=== PATIENT | female | born 2000 | race Asian ===

== ENCOUNTER 2024-06-11 20:37 | Emergency (ER) | payer BC, SELFPAY ==
--- NOTE | ~2024-06-11 | XR_ITS ---
Clinical Indication: Syncope PA and lateral views of the chest: Comparison: None Findings: The lungs are clear, without evidence of focal consolidation or pleural effusion. Cardiome diastinal silhouette is within normal limits. Bones and soft tissues are unremarkable. Impression: Normal chest. Reviewed, dictated and finalized at location . Impression: Normal chest.
--- NOTE | ~2024-06-11 | CT_ITS ---
Non-contrast Head CT History: Head injury, syncope Technique: Axial non-contrast imaging of the brain was performed. Dose reduction technique was used on this scan by utilizing automated exposure control and iterative reconstruction technique. The dose -length product (DLP) was 681.00 mGy-cm. Findings: There is no evidence of intracranial hemorrhage, mass lesion, or acute infarct. Brain par enchyma appears normal. The ventricles and subarachnoid spaces are normal in size. The calvarium ap pears normal. The visualized paranasal sinuses and mastoid air cells are clear. Impression: No significant abnormality seen. Reviewed, dictated and finalized at location . Impression: No significant abnormality seen.
[2024-06-11 20:49] VITALS: BP 107/83; PULSE 70; RESP 20; TEMP 36.8; O2SAT 100
[2024-06-11 23:58] VITALS: BP 117/79
[2024-06-11 23:59] VITALS: BP 117/77
[2024-06-12] VITALS: BP 120/74
--- NOTE | 2024-06-12 00:02 | PC.NURSE ---
Pt presents to ED due to syncope episode, around 4pm yesterday. Pt states she felt her vision go dark, and fell back hit her head. Pt denies N/V, no deformity or laceration noted. PT placed on cont. hospital monitor, and cont. pulse oximeter. IV inserted, and orthostatic BP done at bedside.
--- OUTSIDE RECORDS SUMMARY | 2024-06-12 00:24 | XMS_ITS | Clinical Summary ---
Author Organization [facility] Address [address] [place] [address] Phone Care Team Providers Care Front Office Administrator Name Role Phone Marnie Romo MD Primary Care Provider [phone] Allergies No known active allergies Medications No known medications Social History Tobacco Use Types Packs/Day Years Used Date Smoking Tobacco: Never Assessed Comments No Sex and Gender Information Value Date Recorded Sex Assigned at Not on file Legal Sex Female 6:49 PM CDT Gender Identity Not on file Sexual Orientation Not on file Last Filed Vital Signs Vital Sign Reading Time Taken Comments Blood Pressure 125/72 04/28/2016 6:58 PM CDT Pulse - - Temperature 36.8 C (98.2 F) 04/28/2016 6:58 PM CDT Respiratory Rate 18 04/28/2016 6:58 PM CDT Oxygen Saturation 97% 04/28/2016 6:58 PM CDT Inhaled Oxygen Concentration - - Weight 43 kg (94 lb 12.8 oz) 04/28/2016 6:58 PM CDT Height - - Body Mass Index - - Plan of Treatment Health Maintenance Due Date Last Done Comments CHLAMYDIA SCREENING (ANNUAL) 11-24 YEARS 2013 HPV VACCINES (1 - 3-dose series) 2017 DTAP/TDAP/TD VACCINES (1 - Tdap) 2021 HEPATITIS B VACCINES (1 of 3 - 19+ 3-dose series) 08/15 CERVICAL CANCER SCREENING 08/27/2023 HPV/Cotest (21-29) 08/27/2023 PAP SMEAR 08/27/2023 INFLUENZA VACCINE (#1) 2023 Insurance [facility] [employer] CHOICE [facility] [employer] CHOICE Care Teams Front Office Administrator Relationship Specialty [place] M[place] [address] [place] [address] [place] [phone] PCP - General Pediatrics 04/28/16
--- OUTSIDE RECORDS SUMMARY | 2024-06-12 00:24 | XMS_ITS | Clinical Summary ---
Author Organization [facility] Address [address] [place] [address] Care Team Providers Care Escrow Manager Name Role Phone Marnie Romo MD Primary Care Provider + Source Comments [facility],non-owned Affiliates and Associated Physician Practices is amultiple site organization consisting of ambulatory clinics and hospital sitesin [place], [place], [place] and [place]. This disclosure is being madepursuant to the Care Everywhere program and may not contain all information available regarding this patient. Last updated 17.[facility] Allergies No known active allergies Medications * Be aware that medications may not be up to date on this document. Alwaysverify current medications with the patient. 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 Gender Identity Not on file Sexual Orientation Not on file Last Filed Vital Signs Vital Sign Reading Time Taken Comments Blood Pressure 108/60 05/15/2017 2:25 PM CDT Pulse 81 05/15/2017 2:25 PM CDT Temperature 36.9 C (98.4 F) 05/15/2017 2:25 PM CDT Respiratory Rate 18 05/15/2017 2:25 PM CDT Oxygen Saturation 97% 05/15/2017 2:25 PM CDT Inhaled Oxygen Concentration - - Weight 46.3 kg (102 lb) 05/15/2017 2:25 PM CDT Height 156.2 cm (5' 1.5 ) 05/15/2017 2:25 PM CDT Body Mass Index 18.96 05/15/2017 2:25 PM CDT Plan of Treatment Health Maintenance Due Date Last Done Comments HIV SCREENING 2017 HPV VACCINE (1 - 3-dose series) 2017 CHLAMYDIA/GONORRHEA SCREENING 2018 MENINGOCOCCAL (Group B) VACC INE SHARED DECISION-MAKING (1 of 2 - Standard) 2018 HEPATITIS C SCREENING 08/21/2020 DTAP/TDAP/TD VACCINES (1 - Tdap) 2021 HEPATITIS B VACCINE (1 of 3 - 19+ 3-dose series) 2021 COVID-19 VACCINE (2 - 2023-2 5 season) 2023 09/22/2020 DEPRESSION SCREENING 02/16/2024 INFLUENZA VACCINE (Season Ended) 2024 ZOSTER VACCINE (1 of 2) 2052 HIB VACCINE Aged Out No longer eligi ble based on patient's age to complete this topic MENINGOCOCCAL GROUPS A/C/Y/W VACCINE Aged Out No longer eligible b ased on patient's age to complete this topic PNEUMOCOCCAL VACCINE Aged Out No long er eligible based on patient's age to complete this topic Insurance ANTHEM Care Teams Escrow Manager Relationship Specialty [place] [address] [place] [address] PCP - General Pediatrics 05/15/17
--- OUTSIDE RECORDS SUMMARY | 2024-06-12 00:24 | XMS_ITS | Clinical Summary ---
Author Organization [facility] Address [address] [place] [address] Care Team Providers Care Spray Machine Loader Name Role Phone Marnie Romo MD Primary Care Provider + Allergies No known active allergies Medications cholecalcifero l (VITAMIN D-3) 5,000 unit capsule Take 1 capsule (5,000 Units total) by mouth daily Active FLUoxetine (PROzac) 20 mg capsuleIndicat ions:Generaliz ed anxiety disorder,Recur rent major depressive disorder, in partial remission TAKE 1 CAPSULE BY MOUTH EVERY DAY 90 capsule 3 5 Active buPROPion SR (WELLBUTRIN SR) 150 mg 12 hr tabletIndicati ons:Generalize d anxiety disorder,Recur rent major depressive disorder, in partial remission TAKE 1 TABLET BY MOUTH EVERY MORNING 30 tablet 2 5 Active cloNIDine (CATAPRES) 0.2 mg tabletIndicati ons:Generalize d anxiety disorder TAKE 1/2 OR 1 TABLET BY MOUTH EVERY NIGHT 30 tablet 2 5 Active traZODone (DESYREL) 50 mg tabletIndicati ons:insomnia associated with depression Take 0.5-1 tablets (25-50 mg total) by mouth nightly as needed for sleep 30 tablet 2 5 Active traZODone (DESYREL) 50 mg tablet Take 1 tablet (50 mg total) by mouth nightly 30 tablet 5 05/17/19 25 Discontinued Hospital, Clinic, or Other Facility Administered Medication Ordered Dose Route Frequency Start Date End Date Status medroxyPROGESTERon e (DEPO-PROVERA) 150 mg/mL injection 150 mgIndications:Uses Depo-Provera as primary control method 150 mg IM During hospitalization 05/23/2024 5 Ended Active Problems Problem Noted Date Diagnosed Date Social phobia 03/08/2018 Generalized anxiety disorder 01/11/2018 Recurrent major depressive disorder, in partial remission 01/11/2018 Resolved Problems Problem Noted Date Diagnosed Date Resolved Date Suicidal ideation 01/12/2018 07/09/2022 Overview (01/12/2018): 17 y/o F hx of depression and anxiety, on Zoloft, who follows with Child Psychiatry. She was seen by Stefanie, on day of admission and was endorsing SI. Plan included overdosing on Zoloft or stepping out into traffic. CBC, CMP, UA, thyroid studies all normal. Psych recommending inpatient placement, but no beds available. Patient states triggers for her increased low mood include a recent fight with a friend and 3 of her older siblings leaving for college this fall. She has had previous SI, as well as an attempt 2 years ago by ingesting nail australian remover. She also had a history of cutting, but states no cutting since middle december. 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 She was seen by Stefanie, on day of admission and was endorsing SI. Plan included overdosing on Zoloft or stepping out into traffic. CBC, CMP, UA, thyroid studies all normal. Psychiatry saw her in the ER and recommended inpatient psychiatric placement, but no beds available. Patient states triggers for her increased low mood include a recent fight with a friend and 3 of her older siblings leaving for college this fall. She has had previous SI, as well as an attempt 2 years ago by ingesting nail australian remover. She also had a history of cutting, but states no cutting since middle december. Continues to have SI and feels down. Plan: -1:1 sitter -suicide precautions -Psychiatry recommendation for inpatient psychiatry placement, medically cleared for transfer -increased Zoloft to 100 mg Assessment & Plan (01/12/2018 1:03 AM GOLF CLUB ASSEMBLER): Assessment: 17 y/o F hx of depression and anxiety, on Zoloft, who follows with Child Psychiatry. She was seen by , Stefanie Milan, on day of admission and was endorsing SI. Plan included overdosing on Zoloft or stepping out into traffic. CBC, CMP, UA, thyroid studies all normal. Psychiatry saw her in the ER and recommended inpatient psychiatric placement, but no beds available. Patient states triggers for her increased low mood include a recent fight with a friend and 3 of her older siblings leaving for college this fall. She has had previous SI, as well as an attempt 2 years ago by ingesting nail australian remover. She also had a history of cutting, but states no cutting since december. Plan: -1:1 sitter -suicide precautions -f/u with psychiatry re: inpatient psych bed availability -increase Zoloft to 100 mg Thumb injury 07/09/2016 08/12/2017 Encounters Date Type Department Care Team Description 05/29/2024 Results Follow-Up [facility] Obstetrics and Gynecology [address] [place] [address] 7th [address] [place] [id number] Allison Kilgore NP 05/23/2024 2:04 PM CDT - 05/23/2024 11:59 PM CDT Hospital Encounter [facility] [address] [place] [address] Well woman exam Discharge Disposition: Discharge to home or self care 05/23/2024 1:30 PM CDT Office Visit [facility] Obstetrics and Gynecology [address] [place] [address] 7th [address] [place] [address] Allison Kilgore NP Well woman exam (Primary Dx); Uses Depo-Provera as primary control method 05/16/2024 1:30 PM CDT Office Visit [facility] Department of Psychiatry [address] [facility] [address] [place] [id number] Juliann Beltran MD Generalized anxiety disorder (Primary Dx); Recurrent major depressive disorder, in partial remission from Last 3 Months Immunizations Immunization Administration Dates Next Due DTaP, Unspecified 08/20/2004, 4,08/28/2003,06/12 Hep B, Unspecified 02/28/2004,08/28/2003, 004 HiB 12/24/2003,08/28/2003,06/13/2003 IPV 02/28/2004,08/28/2003,06/13/2003 MMR 02/28/2004 MMRV 09/17/2021 Meningococcal ACWY, Unspecified 09/22/2014 Meningococcal B, Recombinant (Trumenba) 09/17/2021 Meningococcal MCV4P (Menactra) 10/10/2020 Pfizer SARS-CoV-2 Monovalent Vaccination (12+ Yrs) PURPLE 10/13/2020 Tdap 09/22/2014 Varicella 12/24/2003 Medical History Medical History Date Comments Depression Social History Tobacco Use Types Packs/Day Years Used Date Smoking Tobacco: Never Smokeless Tobacco: Never Tobacco Cessation:Counseling Given: Not Answered AUDIT-C Answer Date Recorded Frequency of Alcohol Consumption Not on file 05/23/2024 Q2: How many drinks containi ng alcohol do you have on a typical day when you are drinking? Patient does not drink Frequency of Binge Drinking Not on file 09/2024 PHQ-2 Answer Date Recorded PHQ-2 Total Score (If total score is 3 or more points, staff should administer the PHQ-9) 4 09/17/2021 Comments No Sex and Gender Information Value Date Recorded Sex Assigned at Not on file Legal Sex Female 11:02 AM GOLF CLUB ASSEMBLER Gender Identity Not on file Sexual Orientation Not on file Obstetrics History Para Term AB IAB SAB Ectopic Multiple Livin g Live Births 0 0 0 0 0 0 0 0 0 0 0 Last Filed Vital Signs Vital Sign Reading Time Taken Comments Blood Pressure 91/52 05/23/2024 1:26 PM CDT Pulse 72 12/30/2022 11:04 AM GOLF CLUB ASSEMBLER Temperature 37.2 C (98.9 F) 09/17/2021 1:46 PM CDT Respiratory Rate 18 01/13/2018 4:13 PM GOLF CLUB ASSEMBLER Oxygen Saturation 97% 01/13/2018 4:13 PM GOLF CLUB ASSEMBLER Inhaled Oxygen Concentration - - Weight 53.5 kg (118 lb) 05/23/2024 1:26 PM CDT Height 156.8 cm (5' 1.73 ) 05/23/2024 1:26 PM CD T Body Mass Index 21.77 05/23/2024 1:26 PM CDT Plan of Treatment Health Maintenance Due Date Last Done Comments Chlamydia and Gonorrhea (GC/CT) Screening 2002 Hepatitis C Screening 2002 HPV Vaccines (1 - 3-dose series) 2017 Meningococcal B Vaccine (2 of 2 - Trumenba SCDM 2-dose series) 03/20/2022 09/17/2021 Depression Screening 09/17/2022 09/17/2021, 08/14/19 18 Covid-19 Vaccine ( season) 2023 10/13/2020, 09/22/2020 DTaP/Tdap/Td Vaccine (6 - Td or Tdap) 09/22/2024 09/22/2014, 08/20/2004, 12/24/2003, Additional history exists Influenza Vaccine (Season Ended) 2024 Cervical Cancer Screening 05/23/2025 05/23/2024 Regular Well Visit/Exam 18-64 05/23/2025 05/23/2024, 01/19/2023, 12/05/2021, Additional history exists Hepatitis B Screening Completed 02/28/2004 , 08/28/2003, 06/13/2003 Meningococcal Vaccine Completed 10/10/2020, 015 Varicella Vaccines Completed 09/17/2021, 12/24/2003 Pneumococcal vaccine <65 Aged Out No longer eligible based on patient's age to complete this topic Procedures Procedure Name Priority Date/Time Associated Diagnosis Comments PAP WITH REFLEX TO HIGH RISK HPV Routine 05/23/2024 2:04 PM CDT Well woman exam THINPREP PROCESSING (MOLECULAR COMPONENT) Routine 05/23/2024 2:04 PM CDT Well woman exam from Last 3 Months Results * ThinPrep processing (Molecular component) (05/23/2024 2:04 PM CDT) ThinPrep processing (Molecular component) Specimen received for processing. [facility] Endocervical 05/23/2024 2:04 PM CDT 05/24/2024 9:14 AM CDT us Allison Kilgore [facility] BODY FLUIDS AND STOOLS ORDERABLES Final Result [facility] Department [place] [address] [facility] * Pap with reflex to High Risk HPV and Genotyping (Cytology Component) (05/23/2024 2:04 PM CDT) Thin prep (Pap test) 05/23/2024 2:04 PM CDT 05/23/2024 4:40 PM CDT Narrative PATHOLOGY [facility] - 05/29/2024 1:32 PM CDT EPIC results best viewed via link to PDF [facility] [place] [address] Note to Patients: This report may contain a detailed description of human tissue sent by a health care provider to the laboratory for pathologic evaluation. The content of this report is essential for diagnosis and may provide important critical findings. This information may be unfamiliar to patients to review without a medical professional present. It is advised that the patient review this report in the presence of a health care provider who can answer questions and explain the details. CYTOPATHOLOGY REPORT FINAL Patient Name: JORDANA ROSA Gender: F : 2000 (Age: 23) [address]: [address] [place] [phone] [facility] #: [id number] Service: INSPECTOR BALANCE TRUING Location: Patient Type: [facility] SPECIMEN Taken: 05/23/2024 Received: 05/23/2024 Accessioned: 05/24/2024 Reported: 05/29/2024 Physician(s): Allison Kilgore NP FINAL INTERPRETATION SOURCE OF SPECIMEN Liquid based Thin Prep pap with Reflex HPV: STATEMENT OF ADEQUACY - Satisfactory for evaluation - Endocervical cells/transformation zone sample present GENERAL CATEGORIZATION: - Negative for squamous intraepithelial lesion or malignancy 05/29/2024 13:32 SEBLE Carpenter(ASCP) Report Electronically Reviewed and Signed Out By SEBLE Carpenter(ASCP) 05/29/2024 13:32:41 Cervicovaginal Cytology (Pap Test) Disclaimer: The Pap test is a screening test used to detect cervical cancer and its precursors; it is not a diagnostic procedure. False negative and false positive results do occur. Pap test results should be interpreted in the context of pertinent clinical information and biopsy results as indicated. [facility] Clinical Laboratory Improvement Amendments (CLIA) mandate that cytologic and histologic results be correlated for laboratory quality assurance technician & improvement standards. FOR ALL HIGH-GRADE CASES we request submission of follow-up histological material and/or reports that have not been previously provided so that we may fulfill said required standards. Gross Description A. Liquid based Thin Prep pap with Reflex HPV: Cervical/vaginal - Screening ThinPrep Clinical Diagnosis and History Last Menstrual Period: unknown Contraceptive History: Depo-Provera cNone given Report Images and scanned documents, if included only viewable in PDF version The performance characteristics of some immunohistochemical stains, in-situ hybridization and fluorescence in-situ hybridization tests and immunophenotyping by flow cytometry cited in this report (if any) were determined by the Surgical Pathology Department at [facility] as part of an ongoing lead quality control technician program and in compliance with federally mandated regulations drawn from the Clinical Laboratory Improvement Act of 1988 (CLIA '88). Some of these tests rely on the use of analyte specific reagents and are subject to specific labeling requirements by the US Food and Drug Administration. Such diagnostic tests may only be performed in a facility that is certified by the Department of Health and Human Services as a high complexity laboratory under CLIA '88. The FDA has determined that such clearance or approval is not necessary. This test is used for clinical purposes. It should not be regarded as investigational or for research. Nevertheless, federal rules concerning the medical use of analyte specific reagents require that the following disclaimer be attached to the report: This test was developed and its performance characteristics determined by the Surgical Pathology Department of [facility]. It has not been cleared or approved by the U. S. Food and Drug Administration. Allison Kilgore NP LAB CYTOLOGY ORDERAB LES Final Result PATHOLOGY [facility] 3rd Floor [place], [place] [phone] from Last 3 Months Insurance [employer] [place] [address] [employer] ANTHEM ACCESS CHOICE AN[employer] ACCESS CHOICE [employer] ACCESS CHOICE [employer] ACCESS CHOICE Advance Directives For more information, please contact: [phone] * Full Code (Latest Code Status on File) Date Activated Date Inactivated Comments 01/12/2018 1:08 AM 01/13/2018 10:09 PM Care Teams Spray Machine Loader Relationship Specialty [place] [address] [place] [address] PCP - General 07/14/16
--- OUTSIDE RECORDS SUMMARY | 2024-06-12 00:24 | XMS_ITS | Encounter Summary ---
Author Organization [facility] Address [address] [place] [address] Phone Care Team Providers Care Rake Operator Name Role Phone Marnie Romo MD Primary Care Provider + Encounter Details Date Type Department Care Team (Late st Contact Info) Description 05/29/2024 Results Follow-Up [facility] Obstetrics and Gynecology [address] [facility] 7th Floor [address] [place] [address] Allison Kilgore, DANIELITO [address] [facility] [address] [place] [address] Social History Tobacco Use Types Packs/Day Years Used Date Smoking Tobacco: Never Smokeless Tobacco: Never AUDIT-C Answer Date Recorded Frequency of Alcohol [...] on file 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
--- OUTSIDE RECORDS SUMMARY | 2024-06-12 00:24 | XMS_ITS | Referral Summary ---
Author Organization [facility] ospital Address [address] [place] [address] Care Team Providers Care Collection Team Lead Name Role Phone Marnie Romo MD Primary Care Provider + Encounters Date Type Department Care Team Description 05/29/2024 Results Follow-Up [facility] Obstetrics and Gynecology [address] [place] [address] 7th [address] [place] [address] Allison Kilgore NP 05/23/2024 2:04 PM CDT - 05/23/2024 11:59 PM CDT Hospital Encounter [facility] [address] [facility] [address] [place] [address] Well woman exam Discharge Disposition: Discharge to home or self care 05/23/2024 1:30 PM CDT Office Visit [facility] Obstetrics and Gynecology [address] [facility] 7th Floor [address] [place] [address] Allison Kilgore NP Well woman exam (Primary Dx); Uses Depo-Provera as primary control method 05/16/2024 1:30 PM CDT Office Visit [facility] Department of Psychiatry [address] [facility] [address] [place] [address] Juliann Beltran MD Generalized anxiety disorder (Primary Dx); Recurrent major depressive disorder, in partial remission from Last 3 Months Allergies No known active allergies Medications cholecalcifero [...] december. Assessment & Plan (01/13/2018 10:24 PM SODA MAKER): Assessment: 17 y/o F hx of depression [...] cutting, but states no cutting since december. Continues to have SI and feels down. Plan: -1:1 sitter -suicide precautions -Psychiatry recommendation for inpatient psychiatry placement, medically cleared for transfer -increased Zoloft to 100 mg Assessment & Plan (01/12/2018 1:03 AM SODA MAKER): Assessment: 17 y/o F hx of depression [...] to 100 mg Thumb injury 07/09/2016 08/12/2017 Immunizations Immunization Administration Dates Next Due DTaP, Unspecified 08/20/2004, 4,08/28/2003,06/12 Hep B, Unspecified 02/28/2004,08/28/2003, 004 HiB 12/24/2003,08/28/2003,06/13/2003 IPV 02/28/2004,08/28/2003,06/13/2003 MMR 02/28/2004 MMRV 09/17/2021 Meningococcal ACWY, Unspecified 09/22/2014 Meningococcal B, Recombinant (Trumenba) 09/17/2021 Meningococcal MCV4P (Menactra) 10/10/2020 Pfizer SARS-CoV-2 Monovalent Vaccination (12+ Yrs) PURPLE 10/13/2020 Tdap 09/22/2014 Varicella 12/24/2003 Social History Tobacco Use Types Packs/Day Years [...] on file Legal Sex Female 11:02 AM SODA MAKER Gender Identity Not on file Sexual Orientation Not on file Last Filed Vital Signs Vital Sign Reading Time Taken Comments Blood Pressure 91/52 05/23/2024 1:26 PM CDT Pulse 72 12/30/2022 11:04 AM SODA MAKER Temperature 37.2 C (98.9 F) 09/17/2021 1:46 PM CDT Respiratory Rate 18 01/13/2018 4:13 PM SODA MAKER Oxygen Saturation 97% 01/13/2018 4:13 PM SODA MAKER Inhaled Oxygen Concentration - - Weight 53.5 kg (118 lb) 05/23/2024 1:26 PM CDT Height 156.8 cm (5' 1.73 ) 05/23/2024 1:26 PM CD T Body Mass Index 21.77 05/23/2024 1:26 PM CDT Plan of Treatment Not on file Procedures Procedure Name Priority Date/Time Associated Diagnosis Comments PAP WITH REFLEX TO HIGH RISK HPV Routine 05/23/2024 2:04 PM CDT Well woman exam THINPREP PROCESSING (MOLECULAR COMPONENT) Routine 05/23/2024 2:04 PM CDT Well woman exam from Last 3 Months Results * ThinPrep processing (Molecular component) (05/23/2024 2:04 PM CDT) ThinPrep processing (Molecular component) Specimen received for processing. MERGED WITH [facility] Endocervical 05/23/2024 2:04 PM CDT 05/24/2024 9:14 AM CDT Allison Kilgore NP LAB BODY FLUIDS AND STOOLS ORDERABLES Final Result [facility] [place] [address] MERGED WITH [facility] * Pap with reflex to High Risk HPV and Genotyping (Cytology Component) (05/23/2024 2:04 PM CDT) Thin prep (Pap test) 05/23/2024 2:04 PM CDT 05/23/2024 4:40 PM CDT Narrative PATHOLOGY MERGED WITH [facility] - 05/29/2024 1:32 PM CDT EPIC results best viewed via link to PDF [facility] Jayashree Barboza [facility] [place] [address] Note to Patients: This report may contain [...] Gender: F : 2000 (Age: 23) Address: [address] [place] [address] Hospital #: [id number] Service: BATTER OUT Location: Patient Type: MERGED WITH [facility] SPECIMEN Taken: 05/23/2024 Received: 05/23/2024 Accessioned: 05/24/2024 Reported: 05/29/2024 Physician(s): Allison Kilgore NP FINAL INTERPRETATION SOURCE OF SPECIMEN Liquid based Thin Prep pap with Reflex HPV: STATEMENT OF ADEQUACY - Satisfactory for evaluation - Endocervical cells/transformation zone sample present GENERAL CATEGORIZATION: - Negative for squamous intraepithelial lesion or malignancy /05/29/2024 13:32 SEBLE Carpenter(ASCP) Report Electronically Reviewed and [...] clinical information and biopsy results as indicated. CMS Clinical Laboratory Improvement Amendments (CLIA) mandate that cytologic and histologic results be correlated for laboratory quality consultant & improvement standards. FOR ALL HIGH-GRADE CASES [...] determined by the Surgical Pathology Department at [facility] as part of an ongoing lead quality technician program and in compliance with federally [...] determined by the Surgical Pathology Department of [facility]. It has not been cleared or approved by the U. S. Food and Drug Administration. Allison Kilgore NP LAB CYTOLOGY ORDERAB LES Final Result Performing Organization Address City/State/[facility] Co de Phone Number PATHOLOGY [facility] 3rd Floor [place], [place] [phone] from Last 3 Months Insurance [facility] ACCESS CHOICE Member Subscriber Plan / Payer (Ef fective 2016-Present) Name:Jordana Rosa Relation to Subscriber:Child Name:JACQUELINE ROSA Date of :1961 (Home) Address: [address] [place] [id number] Payer ID:[id number] (NAIC) Type: FLORY Address: [facility] [id number] [place] [id number] ANTHEM ACCESS CHOICE ANTHEM ACCESS CHOICE ANTHEM ACCESS CHOICE ANTHEM ACCESS CHOICE ANTHEM ACCESS CHOICE Advance Directives For more information, please contact: [phone] * Full Code (Latest Code Status on File) Date Activated Date Inactivated Comments 01/12/2018 1:08 AM 01/13/2018 10:09 PM Care Teams Collection Team Lead Relationship Specialty [place] [address] [facility] [place] [address] PCP - General 07/14/16
--- NOTE | 2024-06-12 00:29 | ED_ITS ---
HPI - Head Injury General Chief complaint: Head Injury Stated complaint: head injury, headache Time Seen by Provider: 06/11/24 23:49 Source: patient Mode of arrival: ambulatory Limitations: no limitations History of Present Illness HPI Narrative: This is a 23-year-old female, with reported history of orthostatic hypotension, presents to the emergency department after a syncopal episode. The patient states she stood quickly, felt lightheaded and lost consciousness. She states she struck the back of her head. She denies chest pain, palpitations, shortness of breath before or after the incident. She states she has had episodes of lightheadedness rapid change in position. She has no other complaints at this time. Related Data Allergies Allergy/AdvReac Type Severity Reaction Status Date / Time No Known Allergies Allergy Verified 06/11/24 21:01 Review of Systems 2 Review of Systems: All systems reviewed & are unremarkable except as noted in HPI and below PMFSH Past Medical History Medical History No significant past medical history Surgical History Surgical History No significant past surgical history Social History Social History Smoking status: Never smoker Alcohol intake: current Drinks per week: 1 Substance use: never Exam 2 Narrative: GENERAL: Well-developed, well-nourished, and in no acute distress. HEAD: Normocephalic, atraumatic. EYES: PERRLA and EOMI. ENT: Nares clear, no rhinorrhea or epistaxis. Mucous membranes moist. Oropharynx without tonsillar hypertrophy exudate or other lesions. NECK: Supple. No midline spine tenderness to palpation, step-off or crepitus CHEST: Clear to auscultation. No respiratory distress. No wheezes rales or rhonchi HEART: Regular rate and rhythm. No murmur heard. Normal peripheral pulses. ABDOMEN: Soft, nontender, nondistended, normal active bowel sounds. EXTREMITIES: Normal range of motion. No edema. SKIN: Warm, dry, no rash. NEURO: Alert and oriented x3. No focal deficit. Moving all 4 limbs spontaneously PSYCH: Normal mood and affect. Course Course Emergency Course: : - STAT Rad interpretation of CT head demonstrates no evidence of acute intracranial abnormality. No ICH, mass effect or edema. No skull fracture. ? CBC demonstrates mildly elevated platelet count of 385 but is otherwise unremarkable. Chemistries unremarkable. Chest x-ray negative for acute cardiopulmonary process. Review of the patient's monitor shows she has remained in a sinus rhythm without arrhythmias. After 2 L IV fluids, the patient states she feels improved and her orthostatic vital signs are normal. Will discharge with recommendation for primary care follow-up. I discussed the findings and recommendations with the patient. Discussed return and emergency precautions including signs/symptoms of intracranial hemorrhage, focal neural deficit any arrhythmia. The patient voiced understanding and agreement with the plan. All questions answered to her satisfaction. Vital Signs Vital signs: Vital Signs Temperature 98.2 F 06/11/24 20:49 Pulse Rate 70 06/11/24 20:49 Respiratory Rate 20 06/11/24 20:49 Blood Pressure 107/83 06/11/24 20:49 Pulse Oximetry 100 06/11/24 20:49 Oxygen Delivery Room Air 06/11/24 20:49 Temperature 98.2 F 06/11/24 20:49 Pulse Rate 70 06/11/24 20:49 Respiratory Rate 20 06/11/24 20:49 Blood Pressure 120/74 06/12/24 00:00 Pulse Oximetry 100 06/11/24 20:49 Oxygen Delivery Room Air 06/11/24 20:49 MDM - Head Injury MDM Narrative Medical decision making narrative: Plan: Labs, imaging, IV fluids, orthostatics vital signs, reassess Differential Diagnosis Differential diagnosis: Likely concussion without loss of consciousness, closed head injury, subarachnoid hematoma and other (Orthostatic hypotension, dehydration, metabolic abnormality, anemia, arrhythmia, other) Lab Data 06/12/24 00:45 06/12/24 00:45 Labs: Lab Results 06/12/24 Range/Units 00:45 WBC 7.3 (4.5-10.0) K/mm3 RBC 4.44 (4.2-5.4) M/mm3 Hgb 13.1 (12.0-15.0) g/dL Hct 39.2 (37.0-47.0) % MCV 88.3 (80-100) fl MCH 29.5 (26-34) pg MCHC 33.4 (32-36) g/dl RDW 11.9 (11.5-14.5) % Plt Count 385 H (150-375) k/mm3 MPV 8.8 (7.4-10.4) fl Immature Gran % (Auto) 0.3 (0-0.5) % Neut % (Auto) 47.6 (45.5-73.1) % Lymph % (Auto) 41.9 (18.3-44.2) % [place] % (Auto) 8.6 H (2.6-8.5) % Eos % (Auto) 1.0 (0-4.4) % Baso % (Auto) 0.6 (0.2-1.2) % Lymph # (Auto) 3.04 (0.9-3.2) K/mm3 [place] # (Auto) 0.6 (0.1-0.6) K/mm3 Eos # (Auto) 0.1 (0-0.3) K/mm3 Baso # (Auto) 0.0 (0.0-0.1) K/mm3 Abs Immat Gran (auto) 0.02 (0.00-0.031) K/mm3 Absolute Neuts (auto) 3.5 (1.3-6.7) K/mm3 Absolute Nucleated RBC 0.000 (0.0-0.012) K/mm3 Nucleated RBC % 0.0 (0.0-0.2) % Sodium 139 (137-145) mmol/L Potassium 3.6 (3.4-5.0) mmol/L Chloride 103 (98-107) mmol/L Carbon Dioxide 22 (22-30) mmol/L Anion Gap 14 H (4-12) mmol/L BUN 15 (7-17) mg/dL Creatinine 0.57 L (0.7-1.0) mg/dL Estim Creat Clear Calc 104 ml/min Estimated GFR > 60 (59 - ) Glucose 82 (65-110) mg/dL Calcium 9.8 (8.4-10.2) mg/dL Total Bilirubin 0.5 (0.2-1.3) mg/dL AST 30 (14-36) U/L ALT 13 (6-35) U/L Alkaline Phosphatase 57 (38-126) U/L Total Protein 8.0 (6.3-8.2) g/dL Albumin 5.0 (3.5-5.1) g/dL Discharge Plan Discharge Clinical Impression: Syncope Qualifiers: Syncope type: unspecified Qualified Code(s): R55 - Syncope and collapse Closed head injury Qualifiers: Encounter type: initial encounter Qualified Code(s): S09.90XA - Unspecified injury of head, initial encounter Patient Disposition: Home Condition: Stable Instructions: Antibiotic Form, Head Injury (ED) Additional Instructions: You were seen in the emergency department. CT of the head was not concerning for bleeding in the brain. Your EKG was not concerning for abnormal heart rate. Your red blood cell count and white blood cell counts are normal. Your liver and kidney function tests are normal. I suspect your loss of consciousness is related to orthostatic hypotension. Your given IV fluids. I recommend following up with your primary care doctor and drinking plenty of fluids. If you develop weakness/numbness, change/loss of vision/hearing, persistent vomiting, or if you have other emergent concerns for life, limb, or eyesight, return to the emergency department. Patient Language: Panamanian Follow-up/Referrals: UNKNOWN,DOCTOR [Primary Care Provider] - Time of Disposition: 02:56
[2024-06-12] MEDS: SODIUM CHLORIDE 0.9% IV 2,000 ML 999 ML IV CONT (00:46)
[2024-06-12 00:53] LABS: Basophils Percent Auto 0.6 % (0.2-1.2); Eosinophils Absolute Auto 0.1 K/mm3 (0-0.3); Hematocrit 39.2 % (37.0-47.0); Hemoglobin 13.1 g/dL (12.0-15.0); Immature Granulocyte Absolute 0.02 K/mm3 (0.00-0.031); Immature Granulocyte Percent A 0.3 % (0-0.5); Lymphocytes Absolute Auto 3.04 K/mm3 (0.9-3.2); Lymphocytes Percent Auto 41.9 % (18.3-44.2); Mean Corpuscular HGB Conc 33.4 g/dl (32-36); Mean Corpuscular Hemoglobin 29.5 pg (26-34); Mean Corpuscular Volume 88.3 fl (80-100); Mean Platelet Volume 8.8 fl (7.4-10.4); Monocytes Absolute Auto 0.6 K/mm3 (0.1-0.6); Monocytes Percent Auto 8.6 % (2.6-8.5); Neutrophils Absolute Auto 3.5 K/mm3 (1.3-6.7); Neutrophils Percent Auto 47.6 % (45.5-73.1); Platelet Count Result 385 k/mm3 (150-375); Red Blood Count 4.44 M/mm3 (4.2-5.4); Red Cell Distribution Width 11.9 % (11.5-14.5); White Blood Count 7.3 K/mm3 (4.5-10.0)
[2024-06-12 01:20] LABS: Alanine Aminotransferase 13 U/L (6-35); Alkaline Phosphatase 57 U/L (38-126); Anion Gap 14 mmol/L (4-12); Aspartate Amino Transferase 30 U/L (14-36); Bilirubin,Total 0.5 mg/dL (0.2-1.3); Blood Urea Nitrogen 15 mg/dL (7-17); Calcium 9.8 mg/dL (8.4-10.2); Carbon Dioxide 22 mmol/L (22-30); Chloride 103 mmol/L (98-107); Estimated CRCL calculation 104 ml/min; Estimated Glomerular Filt Rate > 60; Glucose 82 mg/dL (65-110); Potassium 3.6 mmol/L (3.4-5.0); Sodium 139 mmol/L (137-145)
[2024-06-12] MEDS: ACETAMINOPHEN 500 MG TABLET 1000 MG PO (03:15)
--- NOTE | 2024-06-12 03:15 | PC.NURSE ---
Pt states she would like some tylenol for pain prior to being DC. made aware, refer to [facility] for medication education.
== END 2024-06-12 03:36 | disposition home or self-care (01) ==
PROVIDERS: Emergency Provider Preventive Medicine Aerospace Medicine
DX: R55 Syncope and collapse (principal); S09.90XA Unspecified injury of head, initial encounter; W18.39XA Other fall on same level, initial encounter
CPT/HCPCS: 36415; 70450; 71046; 80053; 85025; 96360; 96361; 99284; A9270; J7030